=== PATIENT | male | born 1980 | race Caucasian/White ===

== ENCOUNTER 2017-01-18 18:42 | Emergency (ER) | payer OTHER ==
--- NOTE | 2017-01-18 19:07 | ED ---
Overdose HPI - General Chief Complaint: Overdose Stated Complaint: Overdose Source: patient Mode of arrival: EMS Limitations: no limitations - History of Present Illness Initial Comments: Patient is a 36-year-old male percents for evaluation after heroin overdose. Past medical history as below. Patient has a known history of heroin abuse. Last time he used was 11/25/2016. States that he regularly goes to [employer] and [facility]. Stated he ran into a friend today offered him heroin and he took it and a bathroom at a [employer]. He was found "unconscious "in the bathroom there but the patient states that he wasn't unconscious. Narcan was not administered. He was brought here for further evaluation. Currently denies fever, chills, headache, changes of vision, URI symptoms, shortness breath, cough, chest pain, nausea, vomiting, diarrhea, pain or burning with urination. - Related Data Home Medications Medication Instructions Recorded Confirmed No Known Home Medications [No 01/18/17 01/18/17 Known Home Medications] Allergies Allergy/AdvReac Type Severity Reaction Status Date / Time No Known Allergies Allergy Unverified 01/18/17 19:25 Review of Systems ROS Statement: Those systems with pertinent positive or pertinent negative responses have been documented in the HPI. ROS Other: All systems not noted in ROS Statement are negative. Past Medical History History of Any Multi-Drug Resistant Organisms: None Reported Past Surgical History: No Surgical Hx Reported Past Psychological History: PTSD Smoking Status: Current every day smoker Past Alcohol Use History: None Reported Past Drug Use History: None Reported General Exam Limitations: no limitations General appearance: alert, in no apparent distress, other (No acute distress.) Head exam: Present: atraumatic, normocephalic, normal inspection Eye exam: Present: normal appearance, PERRL, EOMI. Absent: scleral icterus, conjunctival injection, periorbital swelling ENT exam: Present: normal exam, mucous membranes moist Neck exam: Present: normal inspection. Absent: tenderness, meningismus, lymphadenopathy Respiratory exam: Present: normal lung sounds bilaterally. Absent: respiratory distress, wheezes, rales, rhonchi, stridor Cardiovascular Exam: Present: regular rate, normal rhythm, normal heart sounds. Absent: systolic murmur, diastolic murmur, rubs, gallop, clicks GI/Abdominal exam: Present: soft, normal bowel sounds. Absent: distended, tenderness, guarding, rebound, rigid Extremities exam: Present: normal inspection, full ROM, normal capillary refill. Absent: tenderness, pedal edema, joint swelling, calf tenderness Back exam: Present: normal inspection Neurological exam: Present: alert, oriented X3, CN II-XII intact Psychiatric exam: Present: normal affect, normal mood Skin exam: Present: warm, dry, intact, normal color, other (No real evidence of track jain.). Absent: rash Course Vital Signs 01/18/17 18:47 Temperature 98 F Pulse Rate 102 H Respiratory 17 Rate Blood Pressure 120/71 Medical Decision Making - Medical Decision Making -Patient is a 36 year old male presents for evaluation after heroin overdose. He was not administered Narcan. Has no complaints at this time. Is of sound mind. Reviewed EKG at 1851 which revealed a normal sinus rhythm at a rate of 78. UT 124. QRS 92. QTc 424. Seems to be peaked T waves. No previous for comparison. Because of which, we'll order CBC and basic metabolic profile. 1947: Reviewed laboratory studies. Unremarkable. Reevaluated the patient. He is alert and oriented 3. Walking a straight line. Not clinically intoxicated. Recommended that he follow-up with his support groups. Comfortable going home. Discussed signs and symptoms on when to return to the emergency department for further evaluation. Comfortable discharge home and follow-up. - Lab Data Result diagrams: 01/18/17 19:10 01/18/17 19:10 Lab Results 01/18/17 01/18/17 Range/Units 19:10 19:10 WBC 7.2 (3.8-10.6) k/uL RBC 4.42 (4.30-5.90) m/uL Hgb 12.9 L (13.0-17.5) gm/dL Hct 39.3 (39.0-53.0) % MCV 88.9 (80.0-100.0) fL MCH 29.1 (25.0-35.0) pg MCHC 32.8 (31.0-37.0) g/dL RDW 14.4 (11.5-15.5) % Plt Count 279 (150-450) k/uL Neutrophils % 68 % Lymphocytes % 24 % Monocytes % 6 % Eosinophils % 1 % Basophils % 1 % Neutrophils # 4.9 (1.3-7.7) k/uL Lymphocytes # 1.7 (1.0-4.8) k/uL Monocytes # 0.4 (0-1.0) k/uL Eosinophils # 0.1 (0-0.7) k/uL Basophils # 0.0 (0-0.2) k/uL Sodium 140 (137-145) mmol/L Potassium 3.7 (3.5-5.1) mmol/L Chloride 106 (98-107) mmol/L Carbon Dioxide 26 (22-30) mmol/L Anion Gap 8 mmol/L BUN 11 (9-20) mg/dL Creatinine 0.77 (0.66-1.25) mg/dL Est GFR (MDRD) Af Amer >60 (>60 ml/min/1.73 sqM) Est GFR (MDRD) Non-Af >60 (>60 ml/min/1.73 sqM) Glucose 94 (74-99) mg/dL Calcium 8.8 (8.4-10.2) mg/dL Disposition Clinical Impression: Heroin use Disposition: HOME SELF-CARE Condition: Good Instructions: Narcotic Abuse (ED) Referrals: Amy Altman MD [Primary Care Provider] - 1-2 days
[2017-01-18 19:31] LABS: Basophils % (A) 1 %; CHCM 32.8; Eosinophils # (A) 0.1 k/uL (0-0.7); Eosinophils % (A) 1 %; HCT 39.3 % (39.0-53.0); HDW 2.33; HGB 12.9 gm/dL (13.0-17.5); Luc # (Auto) 0.07; Luc % (Auto) 1; Lymphocytes # (A) 1.7 k/uL (1.0-4.8); Lymphocytes % (A) 24 %; MCH 29.1 pg (25.0-35.0); MCHC 32.8 g/dL (31.0-37.0); MCV 88.9 fL (80.0-100.0); Mean Platelet Volume 6.8; Monocytes # (A) 0.4 k/uL (0-1.0); Monocytes % (A) 6 %; Neutrophils # (A) 4.9 k/uL (1.3-7.7); Neutrophils % (A) 68 %; RBC 4.42 m/uL (4.30-5.90); RDW 14.4 % (11.5-15.5); WBC 7.2 k/uL (3.8-10.6); WBC (Perox) 6.96
[2017-01-18 19:37] LABS: Anion Gap 8 mmol/L; Blood Urea Nitrogen 11 mg/dL (9-20); Calcium 8.8 mg/dL (8.4-10.2); Carbon Dioxide 26 mmol/L (22-30); Chloride 106 mmol/L (98-107); Glucose 94 mg/dL (74-99); Non-African American GFR(MDRD) >60 (>60 ml/min/1.73 sqM); Potassium 3.7 mmol/L (3.5-5.1); Sodium 140 mmol/L (137-145)
[2017-01-18 20:02] VITALS: BP 127/63; PULSE 69; RESP 16; TEMP 97.6
== END 2017-01-18 20:01 | disposition home or self-care (01) ==
LOC: EC 18:42
DX: T40.1X1A Poisoning by heroin, accidental (unintentional), initial encounter (principal); F11.10 Opioid abuse, uncomplicated; F17.200 Nicotine dependence, unspecified, uncomplicated
CPT/HCPCS: 36415; 80048; 85025; 93005; 99284